=== PATIENT | female | born 1990 | race Caucasian/White ===

== ENCOUNTER → 2020-01-02 13:49 | Outpatient (BNVA) | payer OTHER, SELFPAY | PROVIDERS: Family Provider Nurse Practitioner; PCP Nurse Practitioner; Visit Provider Nurse Practitioner Women's Health | DX: Z30.46 Encounter for surveillance of implantable subdermal contraceptive (principal) | CPT/HCPCS: 88175 ==

== ENCOUNTER → 2020-01-14 08:26 | Outpatient (BNVA) | payer OTHER, SELFPAY | PROVIDERS: Family Provider Nurse Practitioner; PCP Nurse Practitioner; Visit Provider Nurse Practitioner Women's Health | DX: Z30.46 Encounter for surveillance of implantable subdermal contraceptive (principal) | CPT/HCPCS: 81025 ==

== ENCOUNTER → 2021-07-13 13:48 | Outpatient (BNVA) | payer OTHER, MEDICAID, SELFPAY | PROVIDERS: Family Provider Nurse Practitioner; PCP Nurse Practitioner; Visit Provider Nurse Practitioner Women's Health | DX: N92.6 Irregular menstruation, unspecified (principal) | CPT/HCPCS: 81025 ==

== ENCOUNTER → 2021-08-04 13:46 | Outpatient (BNVA) | payer OTHER, MEDICAID, SELFPAY | PROVIDERS: Family Provider Nurse Practitioner; PCP Nurse Practitioner; Visit Provider Obstetrics & Gynecology | DX: Z34.90 Encounter for supervision of normal pregnancy, unspecified, unspecified trimester (principal) | CPT/HCPCS: 80053; 80307; 82570; 82950; 84156; 84315; 84443; 84550; 85027; 86592; 86762; 86803; 86850; 86900; 87086; 87340 ==

== ENCOUNTER → 2021-08-24 08:43 | Outpatient (BNVA) | payer OTHER, MEDICAID, SELFPAY | PROVIDERS: Family Provider Nurse Practitioner; PCP Nurse Practitioner; Visit Provider Obstetrics & Gynecology | DX: O09.90 Supervision of high risk pregnancy, unspecified, unspecified trimester (principal) | CPT/HCPCS: 82951; 82952; 84132; 84156; 84315; 87491; 87591; 87806 ==

== ENCOUNTER → 2021-09-21 11:14 | Outpatient (BNVA) | payer OTHER, MEDICAID, SELFPAY | PROVIDERS: Family Provider Nurse Practitioner; PCP Nurse Practitioner; Visit Provider Obstetrics & Gynecology | DX: O09.90 Supervision of high risk pregnancy, unspecified, unspecified trimester (principal); O24.419 Gestational diabetes mellitus in pregnancy, unspecified control | CPT/HCPCS: 83036; 84315 ==

== ENCOUNTER → 2021-09-30 17:54 | Outpatient (BNVA) | payer OTHER, MEDICAID, SELFPAY | PROVIDERS: Family Provider Nurse Practitioner; PCP Nurse Practitioner; Visit Provider Obstetrics & Gynecology | DX: O09.90 Supervision of high risk pregnancy, unspecified, unspecified trimester (principal); Z3A.00 Weeks of gestation of pregnancy not specified | CPT/HCPCS: 82570; 84156 ==

== ENCOUNTER → 2021-12-07 13:41 | Outpatient (BNVA) | payer OTHER, MEDICAID, SELFPAY | PROVIDERS: Family Provider Nurse Practitioner; PCP Nurse Practitioner; Visit Provider Obstetrics & Gynecology | DX: Z34.83 Encounter for supervision of other normal pregnancy, third trimester (principal); Z3A.29 29 weeks gestation of pregnancy | CPT/HCPCS: 76816; 84315; 85027 ==

== ENCOUNTER → 2022-01-04 10:45 | Outpatient (BNVA) | payer OTHER, MEDICAID, SELFPAY | PROVIDERS: Family Provider Nurse Practitioner; PCP Nurse Practitioner; Visit Provider Obstetrics & Gynecology | DX: O24.419 Gestational diabetes mellitus in pregnancy, unspecified control (principal); Z3A.33 33 weeks gestation of pregnancy | CPT/HCPCS: 76816; 76819; 81000 ==

== ENCOUNTER → 2022-01-18 09:14 | Outpatient (BNVA) | payer MEDICAID, SELFPAY | PROVIDERS: Family Provider Nurse Practitioner; PCP Nurse Practitioner; Visit Provider Obstetrics & Gynecology | DX: O24.419 Gestational diabetes mellitus in pregnancy, unspecified control (principal); Z3A.00 Weeks of gestation of pregnancy not specified | CPT/HCPCS: 76819; 84315 ==

== ENCOUNTER → 2022-01-24 09:43 | Outpatient (BNVA) | payer MEDICAID, SELFPAY | PROVIDERS: Family Provider Nurse Practitioner; PCP Nurse Practitioner; Visit Provider Obstetrics & Gynecology | DX: Z34.90 Encounter for supervision of normal pregnancy, unspecified, unspecified trimester (principal); Z3A.00 Weeks of gestation of pregnancy not specified | CPT/HCPCS: 76819; 84315 ==

== ENCOUNTER → 2022-02-01 09:50 | Outpatient (BNVA) | payer MEDICAID, SELFPAY | PROVIDERS: Family Provider Nurse Practitioner; PCP Nurse Practitioner; Visit Provider Obstetrics & Gynecology | DX: O24.419 Gestational diabetes mellitus in pregnancy, unspecified control (principal); Z3A.37 37 weeks gestation of pregnancy | CPT/HCPCS: 76816; 76819; 81000; 87081 ==

== ENCOUNTER → 2022-02-08 09:09 | Outpatient (BNVA) | payer MEDICAID, SELFPAY | PROVIDERS: Family Provider Nurse Practitioner; PCP Nurse Practitioner; Visit Provider Obstetrics & Gynecology | DX: Z34.90 Encounter for supervision of normal pregnancy, unspecified, unspecified trimester (principal); Z3A.00 Weeks of gestation of pregnancy not specified | CPT/HCPCS: 76819; 84315 ==

== ENCOUNTER → 2022-02-18 08:01 | Outpatient (BNVA) | payer MEDICAID, SELFPAY | PROVIDERS: Family Provider Nurse Practitioner; PCP Nurse Practitioner; Visit Provider Obstetrics & Gynecology | DX: O24.419 Gestational diabetes mellitus in pregnancy, unspecified control (principal); Z3A.00 Weeks of gestation of pregnancy not specified | CPT/HCPCS: 76819 ==

== ENCOUNTER 2022-02-18 19:29 | Outpatient (CLI) | payer MEDICAID, SELFPAY ==
[2022-02-18 19:32] VITALS: BMI 37.3
[2022-02-18 19:42] VITALS: BP 135/64; PULSE 95; TEMP 36.3
[2022-02-18 19:48] LABS: Nitrazine Paper, PH Negative
[2022-02-18 20:02] VITALS: BP 120/74; PULSE 88
[2022-02-18 20:22] VITALS: BP 112/64; PULSE 89
[2022-02-18 20:42] VITALS: BP 113/69; PULSE 80
[2022-02-18 21:02] VITALS: BP 109/63; PULSE 86
[2022-02-18 21:24] VITALS: BP 125/78; PULSE 82
== END 2022-02-18 21:59 | disposition home or self-care (01) ==
LOC: OPOB 19:29 → OBGYN 19:30
PROVIDERS: Family Provider Nurse Practitioner; PCP Nurse Practitioner; Visit Provider Obstetrics & Gynecology
DX: O26.899 Other specified pregnancy related conditions, unspecified trimester (principal); Z3A.00 Weeks of gestation of pregnancy not specified; R10.9 Unspecified abdominal pain
CPT/HCPCS: 59025; 83986; 84315; 99211

== ENCOUNTER → 2022-02-22 09:36 | Outpatient (BNVA) | payer OTHER, MEDICAID, SELFPAY | PROVIDERS: Family Provider Nurse Practitioner; PCP Nurse Practitioner; Visit Provider Obstetrics & Gynecology | DX: O24.419 Gestational diabetes mellitus in pregnancy, unspecified control (principal); Z3A.00 Weeks of gestation of pregnancy not specified | CPT/HCPCS: 76819; 83986; 84315 ==

== ENCOUNTER 2022-02-23 23:19 | Inpatient (IN) | payer MEDICAID, SELFPAY ==
[2022-02-23 22:40] VITALS: BMI 38.9
[2022-02-23 22:58] VITALS: BP 134/74; PULSE 88
[2022-02-23 23:00] VITALS: TEMP 36
[2022-02-23 23:28] VITALS: RESP 16
[2022-02-24] VITALS (37 sets, daily range): BP systolic 98–171; BP diastolic 50–119; PULSE 75–133; RESP 16; TEMP 36.5–36.8; O2SAT 97–98
[2022-02-24 00:09] LABS: Glucose Point of Care 105 mg/dL (70-110)
[2022-02-24 00:48] LABS: Basophils # 0.1 10^3/uL (0.0-0.1); Basophils % 0.5 %; Eosinophils # 0.2 10^3/uL (0.0-0.8); Eosinophils % 1.3 %; Hematocrit 35.6 % (37.0-47.0); Hemoglobin 12.2 g/dL (11.5-15.3); Lymphocytes # 2.7 10^3/uL (0.8-4.8); Lymphocytes % 21.5 %; Mean Corpuscular HGB Conc 34.3 g/dL (30.0-36.0); Mean Corpuscular Hemoglobin 31.2 pg (28.0-34.0); Mean Platelet Volume 11.9 fL (7.4-10.4); Monocytes # 1.1 10^3/uL (0.2-0.9); Monocytes % 9.1 %; Neutrophils # 8.32 10^3/uL (1.8-7.7); Neutrophils % 66.8 %; Nucleated Red Blood Cells % 0 %; Platelet Count 339 10^3/cmm (130-400); Red Blood Count 3.91 10^6/uL (4.1-5.3); Red Cell Distribution Width 13.5 % (12.1-15.1); White Blood Count 12.4 10^3/uL (4.0-10.0)
[2022-02-24 00:52] LABS: Slide Review Slide Review Perform
--- NOTE | 2022-02-24 02:50 | PM.OPHPUD ---
Labor & Delivery H&P Update Date of Procedure: February 24, 2022 Date H&P Performed: 02/22/22 H&P update information: I have reviewed H&P completed within last 30 days, I have examined patient prior to procedure and No changes to prior documentation Admission Diagnosis:
[2022-02-24] MEDS: miSOPROStol 100 mcg tablet 25 MCG VAGINAL (04:16)
[2022-02-24 04:25] LABS: Glucose Point of Care 86 mg/dL (70-110)
[2022-02-24] MEDS: fentaNYL 50 mcg/mL INJ 2mL IVP (06:47)
[2022-02-24] MEDS: lactated ringers 1,000 ML 999 ML IV (06:55)
[2022-02-24] MEDS: dextrose 5%-lactated ringers 1,000 ML 125 ML IV (08:00)
[2022-02-24] MEDS: oxytocin 30 UNIT/500 ML BAG 999 UNIT IV (08:10)
--- NOTE | 2022-02-24 08:22 | P.PCNOB_ITS ---
Delivery Note: Date of delivery: February 24, 2022 Pre-delivery diagnoses: Term Gestational diabetes. Desire postdelivery sterilization Post-delivery diagnoses: Term delivered. Gestational diabetes. Desire permanent sterilization Procedure: Spontaneous vaginal delivery Delivering Physician: Rasheed Nino MD Estimated blood loss (mL): 300 Delivery: The patient was noted to be complete and pushing, so was placed in the dorsal lithotomy position, prepped and draped in the usual sterile fashion for a vaginal delivery. Pt. Noted to have epidural anesthesia. At [time] the patient delivered a viable at 39 weeks male infant weighing 4000 g with scores of 8 and 9 at one and five minutes, respectively. The vertex was delivered spontaneously over intact perineum. The patient was asked to push and the head delivered spontaneously in the AUBREY position, over an intact perineum. A nuchal cord was checked and none noted. The anterior shoulder delivered easily and the posterior shoulder followed. The remainder of the infant was easily delivered and the oropharynx and nasopharynx was bulb suctioned. The was noted to have spontaneous cry and spontaneous movement of all four extremities. The cord was clamped x 2 and cut and noted to have 2 arteries and one vein. The was passed to the mother's abdomen where nursing personnel were in attendance. The placenta delivered intact spontaneously and the uterus was explored. 20 units of Pitocin was placed in the IV bag to firm the uterus. Examination of the cervix and vaginal vault did not reveal any lacerations. A vaginal pack was then placed. Examination of the perineum showed no lacerations noted. The patient tolerated this procedure well, and recovered in L&D with her in their LDR room. All sponge and needle counts were correct. Post-Delivery Status: Good and hemodynamically stable History History History 3 Term 2 0 Miscarriages/Ectopic 0 Living Children 2 A&P Assessment and plan (1) Term delivered: (2) Gestational diabetes: (3) Request for sterilization: Coding Level of Care Code Acute Product Marketing Programs Manager for Chg Fwd Diagnoses Term delivered O80 Gestational diabetes O24.419 Request for sterilization Z30.2
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
--- NOTE | 2022-02-24 09:38 | ANE.PACU2 ---
Inpatient post-anesthesia follow up: Airway intact: Yes Vital signs: Temperature 96.8 F Pulse Rate 86 Respiratory Rate 16 Blood Pressure 128/63 Pulse Oximetry 98 Oxygen Delivery Me thod Room Air Oxygen Flow Rate Fraction of Inspir ed Oxygen Hydration adequate: Yes Nausea and vomiting: No Pain level: 2 Mental status: Baseline
[2022-02-24] MEDS: docusate sodium 100 mg Capsule PO (09:39)
[2022-02-24] MEDS: ibuprofen 800 mg tablet PO ×3 (09:39→22:23)
[2022-02-24] MEDS: prenatal vitamin Capsule 1 CAP PO (09:39)
[2022-02-24] MEDS: benzocaine-menthol 78 gm Canister 1 SPRAY TOPICAL (09:39)
[2022-02-24] MEDS: lanolin oint 7 gm 1 APPLIC TOPICAL (09:40)
--- NOTE | 2022-02-24 10:22 | PC.NURSE ---
Patient ambulated from labor room to room without difficulty. Patient reports she took her home keppra and did not want to take the keppra from the hospital.
--- NOTE | 2022-02-24 18:13 | PM.NBADM ---
[place] Information [place] information: Delivery Date: 02/24/22 Gender: Male Other [place] Information: Term , male LGA infant delivered via vaginal delivery to a 31 year old with an LMP of 05/25/21 and an EDC of 03/01/2022? by dates and consistent with 8 week ultrasound, placing her at 39-0/7 weeks gestation. Coding Level of Care Code Acute Enroute Controller for Ayla Osborn
[2022-02-24 21:32] LABS: Hematocrit 34.4 % (37.0-47.0); Hemoglobin 11.9 g/dL (11.5-15.3); Mean Corpuscular HGB Conc 34.6 g/dL (30.0-36.0); Mean Corpuscular Hemoglobin 31.6 pg (28.0-34.0); Mean Corpuscular Volume 91.5 fl (81-99); Platelet Count 309 10^3/cmm (130-400); Red Blood Count 3.76 10^6/uL (4.1-5.3); Red Cell Distribution Width 13.5 % (12.1-15.1); White Blood Count 16.9 10^3/uL (4.0-10.0)
[2022-02-25] VITALS (12 sets, daily range): BP systolic 100–141; BP diastolic 55–90; PULSE 80–98; RESP 16; TEMP 36.4–36.8; O2SAT 96–98
[2022-02-25] MEDS: hyDROXYzine 25 mg Capsule 50 MG PO (05:53)
--- NOTE | 2022-02-25 06:51 | PM.PN ---
Subjective Subjective: Mrs. Langford s/p vaginal delivery day 1 desire permanent sterilization. Vitals/I&O/Wt Last Vital Signs Temp 97.5 F L 02/25/22 01:35 Pulse 90 02/25/22 01:35 Resp 16 02/25/22 01:35 BP 100/68 02/25/22 01:35 Pulse Ox 97 02/25/22 01:35 O2 Del Method 02/25/22 01:35 02/24/22 02/24/22 02/25/22 14:59 22:59 06:59 Intake Total 1522.6 / 1522.6 1000 / 2522.6 Output Total 900 / 900 Balance 622.6 / 622.6 1000 / 1622.6 Weight last 48 hrs Weight 106.141 kg Physical Exam Narrative: GA; alert and oriented x 3 HEENT: normal Breasts: engorged Nipples - skin intact Lungs; clear to auscultation Heart: regular rhythm, no murmurs. Abd: Appropriately tender. BS+. Uterine fundus below umbilicus. No Fundal Tenderness. Perineum: normal lochia. Extremities: no edema, no cyanosis, no tenderness. Data : 02/24/22 21:20 A&P Assessment and plan (1) Term delivered: (2) Request for sterilization: 31-year-old female status post spontaneous vaginal delivery desire permanent sterilization requesting tubal ligation. The patient was counseled regarding all methods of contraception, risk and complications. She elected to continue to proceed with the tubal ligation as planned. partial salpingectomy is associated with lower failure rates than interval tubal occlusions done via laparoscopy. She was counseled regarding the procedure, alternative, risks and complications. Complications of tubal sterilization include problems like but not limited to anesthesia, hemorrhage, organ damage, and mortality. Although pregnancies after a sterilization procedure are rare, there is substantial risk that any post-sterilization could be ectopic. The overall failure rate is on the order of 0.5% in the first year but a study showed that sterilization failures vary by both age at sterilization and the method used. The study also found that the risks of accumulate over time, and that for women aged 18 to 27 years, failure rates can be as high as 5% with bipolar coagulation and the spring clip. The patient was informed of the risks and benefits of the procedure. Risks included but were not limited to bleeding, infection, and injury to internal organs. The patient was counseled on the risk of sterilization failure. The patient was informed that in the event a occurs the risk of ectopic is increased. The patient was counseled that bilateral tubal ligation is intended to be permanent and nonreversible. She was also counseled that there are nonpermanent forms of control available to her. The patient expressed understanding of the risks involved, all questions were answered, and the patient consented to the procedure and whishes to proceed. Attestations Medical Necessity Statement*: In my professional opinion per admitting diagnosis Coding Level of Care Code Acute Underwriting Consultant for Chg Fwd Diagnoses Term delivered O80 Request for sterilization Z30.2
[2022-02-25] MEDS: metoclopramide 5 mg/mL SDV 2 mL 10 MG IVP (07:05)
[2022-02-25] MEDS: citric acid-sodium citrate 30 mL UDC PO (07:05)
[2022-02-25] MEDS: ceFAZolin 2,000 MG in sodium chloride 0.9% (plus) 50 ML 100 MG IV (07:05)
[2022-02-25] MEDS: famotidine 20 mg/2 mL INJ IVP (07:06)
--- NOTE | 2022-02-25 07:55 | ANES.PAUD2 ---
Pre-Anesthetic Update Pre-Anesthetic Assessment: Date of Surgery/Procedure: 02/25/22 Proposed Procedure: PPTL Changes from Pre-Anesthetic Assessment: NONE Last Intake: 2200 solids and clears. Labs Last 48hrs: Short CBC 02/24/22 02/24/22 Range/Units 00:00 21:20 WBC 12.4 H 16.9 H (4.0-10.0) 10^3/ uL Hgb 12.2 11.9 (11.5-15.3) g/dL Hct 35.6 L 34.4 L (37.0-47.0) % MCV 91.0 91.5 (81-99) fl Plt Count 339 309 (130-400) 10^3/c mm Neut % (Auto) 66.8 % Neut # (Auto) 8.32 H (1.8-7.7) 10^3/u L Vitals: Temperature 97.5 F L 02/25/22 01:35 Temperature Source Oral 02/25/22 01:35 Pulse Rate 90 02/25/22 01:35 Pulse Rhythm 02/23/22 23:12 Respiratory Rate 16 02/25/22 01:35 Respiratory Effort Non-Labored 02/23/22 23:12 Respiratory Depth Normal 02/23/22 23:12 Respiratory Patter n 02/23/22 23:12 Blood Pressure 100/68 02/25/22 01:35 Blood Pressure Joie n 78 02/25/22 01:35 Blood Pressure Pos ition Semi Fowlers 02/25/22 01:35 Pulse Oximetry 97 02/25/22 01:35 Oxygen Delivery Me thod 02/25/22 01:35 Cardiac Studies: No Data to Display
--- NOTE | 2022-02-25 08:11 | PM.OP ---
Operative Report Date of procedure: February 25, 2022 Pre-op diagnosis: Term delivered. Desire permanent sterilization Post-op diagnosis: Same as above Procedure done: bilateral partial salpingectomy Specimens removed/disposition: Left and right fallopian tube segments Surgeon: Rasheed Nino MD Estimated blood loss (mL): 5 IV fluids (mL): 900 Complications: None Findings: Enlarged uterus Procedure: The patient was informed of the risks and benefits of the procedure. Risks included but were not limited to bleeding, infection, and injury to internal organs. The patient was counseled on the risk of sterilization failure. The patient was informed that in the event a occurs the risk of ectopic is increased. The patient was counseled that bilateral tubal ligation is intended to be permanent and nonreversible. She was also counseled that there are nonpermanent forms of control available to her. The patient expressed understanding of the risks involved, all questions were answered, and the patient consented to the procedure. After assuring informed consent. The patient was taken to the operating room and general anesthesia administered. Time-out procedure was performed. A small, transverse, infraumbilical skin incision was made with a scalpel, and the incision was carried down through the underlying fascia until the peritoneum was identified and entered. The left fallopian tube was identified, brought into the incision and grasped with a [place] clamp. The tube was then followed out to the fimbria. An avascular midsection of the fallopian tube was grasped with a Janina clamp and brought into a knuckle. Using the Fondeadorat Fine Fusion device the falopian tube was clamped, seal and cut. The specimen was sent to pathology. Excellent hemostasis was noted, and the tube was returned to the abdomen. The same procedure was performed on the opposite fallopian tube. The fascia was then closed with O-Vicryl in a single layer. The skin was closed with 3-O Monocryl in a subcuticular fashion. The patient tolerated the procedure well. Needle and sponge counts were correct times 3.
--- NOTE | 2022-02-25 09:21 | PC.NURSE ---
0800 pt in OR for tubal ligation
[2022-02-25] MEDS: prenatal vitamin Capsule 1 CAP PO (12:47)
[2022-02-25] MEDS: docusate sodium 100 mg Capsule PO ×2 (12:47→19:06)
[2022-02-25] MEDS: ketorolac 30 mg/mL INJ IVP ×2 (15:56→22:44)
[2022-02-26 04:12] VITALS: BP 114/72; PULSE 85; RESP 17; TEMP 36.6; TEMP 36.7
[2022-02-26] MEDS: ketorolac 30 mg/mL INJ IVP (05:13)
[2022-02-26 05:44] LABS: Hematocrit 36.3 % (37.0-47.0); Hemoglobin 12.2 g/dL (11.5-15.3); Mean Corpuscular HGB Conc 33.6 g/dL (30.0-36.0); Mean Corpuscular Hemoglobin 31.3 pg (28.0-34.0); Mean Corpuscular Volume 93.1 fl (81-99); Mean Platelet Volume 10.6 fL (7.4-10.4); Platelet Count 331 10^3/cmm (130-400); Red Cell Distribution Width 13.7 % (12.1-15.1); White Blood Count 14.1 10^3/uL (4.0-10.0)
[2022-02-26] MEDS: ibuprofen 800 mg tablet PO (07:58)
[2022-02-26] MEDS: docusate sodium 100 mg Capsule PO (07:58)
[2022-02-26] MEDS: prenatal vitamin Capsule 1 CAP PO (07:58)
--- NOTE | 2022-02-26 11:08 | P.DS_ITS ---
Discharge Providers TELEMETRY TECHNICIAN Date of Admission: 02/23/22 23:19 Date of Discharge: 02/26/22 Attending Provider at Admission: Rasheed Nino MD Attending Provider at Discharge: Rasheed Nino MD Primary Care Provider: AMPARO Sanchez Diagnoses at Discharge Discharge Diagnosis (1) Term delivered: Status: Acute (2) Request for sterilization: Status: Acute (3) Gestational diabetes: Status: Acute Reason for Visit Reason for Visit: contractions Hospital Course Hospital Course Ms. Langford is a 31 year old with an LMP of 05/25/21 and an EDC of 03/01/2022 by dates and consistent with 8 week ultrasound, placing her at 39-1/7 weeks gestation came labor and delivery in labor day before scheduled induction due to gestational diabetes. She progressed to have a spontaneous vaginal delivery without complications. She had requested to have permanent sterilization which was performed the day after delivery. Postop observation was uneventful. She is afebrile and hemodynamically stable day 2 and postop day 1. Tolerating diet well. Ambulating without difficulty. Pain well under control. Information Peripartum Data: Delivery Method: Vaginal Physical Exam Narrative: GA; alert and oriented x 3 HEENT: normal Breasts: engorged Nipples - skin intact Lungs; clear to auscultation Heart: regular rhythm, no murmurs. Abd: Appropriately tender. BS+. Uterine fundus below umbilicus. No Fundal Tenderness. Minimal tenderness, incision clean and dry, no redness, pain or edema. Perineum: normal lochia. Extremities: no edema, no cyanosis, no tenderness. History History History 3 Term 2 0 Miscarriages/Ectopic 0 Living Children 2 Discharge Data Studies Completed and Pending Pending at discharge Category Date Time Status Pathology: Surgical [PTH] Routine Pth 02/25/22 10:54 Ordered Laboratory Results WBC 14.1 10^3/uL (4.0-10.0) H 02/26/22 05:03 RBC 3.90 10^6/uL (4.1-5.3) L 02/26/22 05:03 Hgb 12.2 g/dL (11.5-15.3) 02/26/22 05:03 Hct 36.3 % (37.0-47.0) L 02/26/22 05:03 MCV 93.1 fl (81-99) 02/26/22 05:03 MCH 31.3 pg (28.0-34.0) 02/26/22 05:03 MCHC 33.6 g/dL (30.0-36.0) 02/26/22 05:03 RDW 13.7 % (12.1-15.1) 02/26/22 05:03 Plt Count 331 10^3/cmm (130-400) 02/26/22 05:03 MPV 10.6 fL (7.4-10.4) H 02/26/22 05:03 Neut % (Auto) 66.8 % 02/24/22 00:00 Lymph % (Auto) 21.5 % 02/24/22 00:00 [place] % (Auto) 9.1 % 02/24/22 00:00 Eos % (Auto) 1.3 % 02/24/22 00:00 Baso % (Auto) 0.5 % 02/24/22 00:00 Neut # (Auto) 8.32 10^3/uL (1.8-7.7) H 02/24/22 00:00 Lymph # (Auto) 2.7 10^3/uL (0.8-4.8) 02/24/22 00:00 [place] # (Auto) 1.1 10^3/uL (0.2-0.9) H 02/24/22 00:00 Eos # (Auto) 0.2 10^3/uL (0.0-0.8) 02/24/22 00:00 Baso # (Auto) 0.1 10^3/uL (0.0-0.1) 02/24/22 00:00 Nucleated RBC % (auto) 0 % 02/24/22 00:00 Nucleated RBCs # 0.0 /100WBC 02/24/22 00:00 POC Glucose 86 mg/dL (70-110) 02/24/22 04:21 Vitals Last Vital Signs Temp 98.0 F 02/26/22 04:12 Pulse 85 02/26/22 04:12 Resp 17 02/26/22 04:12 BP 114/72 02/26/22 04:12 Pulse Ox 97 02/25/22 16:11 O2 Del Method 02/25/22 16:11 Discharge Plan Discharge Patient Disposition: Home Condition: Stable Prescriptions: New hydrocodone-acetaminophen 5-325 mg tablet 1 tab PO Q4H PRN (Reason: pain) Qty: 10 0RF acetaminophen 325 mg capsule 325 mg PO Q4H PRN (Reason: fever or postoperative pain) Qty: 60 0RF ibuprofen 800 mg tablet 800 mg PO TID PRN (Reason: pain) Qty: 60 0RF Continued prenat.vits,michael,ryo-tcer-oobjs Tablet 1 tab PO DAILY levetiracetam 1,000 mg tablet 1,000 mg PO BID calcium carbonate [Tums] 200 mg calcium (500 mg) tablet,chewable 200 mg PO BID PRN (Reason: Heartburn) No Action (DME) Advanced Gluc Meter Test Strip Strip See Rx Instructions .Route Qty: 200 3RF Rx Instructions: As directed (DME) blood-glucose meter [Advanced Glucose Meter] Misc See Rx Instructions .Route Qty: 1 0RF Rx Instructions: As directed (DME) Lancets,Thin 23 gauge misc See Rx Instructions .Route Qty: 200 3RF Rx Instructions: As directed Discharge Orders: Discharge Order (Routine); Ordered 02/26/22 Ordered By: Rasheed Nino Referrals: Rasheed Nino MD [Physician] - 2 weeks Discharge Diet: Advance as tolerated Discharge Activity: Limit activity as instructed Patient Instructions: Depression (DC), Bleeding (DC), Preeclampsia and Eclampsia After Delivery (GEN), Tubal Ligation (GEN), Hemorrhage (DC), OB Discharge Report, OB Food/Drug Interaction Guide, OB Care at Home, Opioid Safety, OB Home Care, OB Vaginal Deliveries - [facility] Activity Restrictions/Additional Instructions: 1. Please call [facility] clinic on next working day to make your post-operative appointment in 2 weeks. 2. Please stay home until you come back to the clinic on first post-operative check up. 3. Please follow instructions on your medications CAREFULLY. 4. If you have abdominal incision, do not cover it unless dressing is necessary because of drainage. OK to shower, but avoid bath. Leave steri-strips until they fall off. If they are still on one week after surgery, you may remove them. 5. If you had vaginal surgery or vaginal repair, Dr. Nino may instruct you to take SITZ bath. 6. Yellow, blood tinged odorous vaginal discharge is usually normal after hysterectomy or vaginal surgeries. 7. No sexual intercourse, tampons, or douches until you are completely released from the post-operative care. 8. Avoid constipation by eating right and maybe using some Metamucil or Milk of Magnesia. 9. All prescription refills are given during the working hours. Please do no wait till it runs out. Call the clinic at [phone] before your medication runs out. The clinic will get in touch with your doctor to prescribe medications if necessary. 10. Please remain within 40 mile radius from our hospital because emergencies do happen now and then during the post-operative period. 11. If you have stairs at home, take one step at a time slowly and minimize the number of trips. It helps to stay in one floor for the next few days. No lifting except what you can lift by one hand until you are released from the post-operative care. 12. Driving is discouraged until you are well healed. It may be 3-4 weeks before you feel strong enough to drive. You should be able to turn and look through the rear window without pain and you should be able to push the brake pedal very hard without pain before you drive. No fast rules, but SAFETY should be your primary concern. DO NOT drive if you are on sedating medications such as narcotics. 13. Call the clinic (during working hours) to make urgent appointment or go to the Emergency room, if any of the following occurs: i. Vaginal bleeding becomes heavy, more than a period. ii. Incision becomes red and sore, or drains pus. iii. Your temperature is over 100.4 or you have chill. iv. IV site becomes red and swollen (a little ``knot?? is usually OK) v. Persistent nausea and vomiting vi. Persistent constipation or diarrhea vii. Rash or allergic reaction to medications. Discharge Attestations TELEMETRY TECHNICIAN Time Spent in Discharge Care*: greater than 30 min Coding Level of Care Code Acute Lens Shaper Grinder for Chg Fwd Diagnoses Term delivered O80 Request for sterilization Z30.2 Gestational diabetes O24.419
[2022-02-26] MEDS: HYDROcodone-acetaminophen 5-325 mg Tablet PO (11:14)
[2022-02-26 11:22] VITALS: BP 116/74; PULSE 85; RESP 16; TEMP 36.3
[2022-02-26 12:00] VITALS: BP 123/71; PULSE 84; RESP 16; TEMP 37.2; O2SAT 99
[2022-02-26 12:40] VITALS: BP 123/71; PULSE 84; RESP 16; TEMP 37.2; O2SAT 99
== END 2022-02-26 13:02 | disposition home or self-care (01) | DRG 797 ==
LOC: OPOB 23:35 → OBGYN 23:35
PROVIDERS: Admitting Provider Obstetrics & Gynecology; PCP Nurse Practitioner; Visit Provider Obstetrics & Gynecology
PROC: 0U570ZZ Destruction of Bilateral Fallopian Tubes, Open Approach (ICD-10-PCS; CPT 58605; principal; 2022-02-25 07:00)
DX: O24.420 Gestational diabetes mellitus in childbirth, diet controlled (principal); O99.354 Diseases of the nervous system complicating childbirth; Z37.0 Single live birth; Z3A.39 39 weeks gestation of pregnancy; G40.909 Epilepsy, unspecified, not intractable, without status epilepticus
CPT/HCPCS: 36415; 36416; 59025; 59409; 82962; 85025; 85027; 88302; 96374; 96376; 98960; 99211; J0690; J1885; J2370; J2590; J2765; J2795; J3010; J3490; J7120; J7121

== ENCOUNTER → 2022-10-12 09:16 | Outpatient (BNVA) | payer OTHER, MEDICAID, SELFPAY | PROVIDERS: PCP Nurse Practitioner; Visit Provider Nurse Practitioner Family | DX: R20.0 Anesthesia of skin (principal) | CPT/HCPCS: 72040 ==